=== PATIENT | female | born 1985 | race Caucasian/White ===

== ENCOUNTER 2018-02-17 06:28 | Emergency (ER) | payer OTHER ==
[~2018-02-17] VITALS: Ht 167.6 cm; Wt 74.8 kg
[~2018-02-17 06:28] MED LIST: ABILIFY; ABILIFY30 MG PO; ATARAX10 MG; BACTRIM,SEPT1 TABLET PO; CLEOCIN300 MG PO; Dilaudid PO; EMLA TP; LEXAPRO10 MG PO; LEXAPRO5 MG; Lexapro PO; NOHOMEMEDS; NORVIR100 M1 PO; Norvir PO; PRENATAL1 EACH PO; PREZISTA PO; PREZISTA400 MG PO; PREZISTA800 MG PO; PROMETHAZINE HC25 M1 PO; Percocet 5/325,Endoc PO; SEPTRA DS TABL1 EACH PO; SONATA10 MG; STRATTERA18 MG; TOVIAZ4 MG PO; TRUVADA1 TABLET PO; Truvada PO; VYVANSE30 MG PO; ZOLOFT100 M1 PO
[2018-02-17] MEDS ORDERED: COMPAZINE10 MG PO (07:23)
[2018-02-17 09:46] VITALS: BP 127/86
== END 2018-02-17 09:48 | disposition home or self-care (01) ==
LOC: EME 06:28
DX: G43.909 Migraine, unspecified, not intractable, without status migrainosus (principal); I10 Essential (primary) hypertension; F32.9 Major depressive disorder, single episode, unspecified; Z21 Asymptomatic human immunodeficiency virus [HIV] infection status; F31.9 Bipolar disorder, unspecified
CPT/HCPCS: 99281; 99283; J0780